=== PATIENT | male | born 1955 | race Caucasian/White ===

== ENCOUNTER → 2024-07-25 | Outpatient (CLI) | payer MEDICARE ==
--- NOTE | 2024-07-25 10:05 | MR ---
EXAMINATION TYPE: MR Prostate wo/w con DATE OF EXAM: 07/25/2024 8:40 AM COMPARISON: None. CLINICAL INDICATION: Male, 69 years old with history of R97.20 ELEVATED PROSTATE SPECIFIC ANTIGEN [PS A]; TECHNIQUE: Multi-planar, multi-sequence imaging of the pelvis is performed prior to and following the uncomplicated administration of bolus intravenous gadolinium. IV Contrast: mL Interpretive Criteria: PI-RADS v2.1 SERUM PSA: 04/30/2024=8.4 05/21/2024=10.5 SURGICAL PATHOLOGY: No data available. FINDINGS: Prostatic dimensions: 5.7 x 7.3 x 4.6 cm. Ellipsoid Volume:100.22 (PSA density=0.10 ng/mL/mL) CENTRAL GLAND (Central and Transition Zones/CZ+TZ): Multiple bilateral, heterogenous appearing hypertrophic stromal nodules, without suspicious lesion. M edian lobe hypertrophy with protrusion into the base of the bladder. (PI-RADS 2) PERIPHERAL ZONE (PZ): Bilateral linear, indistinct wedgelike areas of low ADC, and low T2 signal, No evidence of masslike a bnormality, or localized perfusional hypervascularity, to further suggest a focus of clinically signi ficant prostate cancer. (PI-RADS 2) SEMINAL VESICLES (SV): Symmetric and unremarkable. PERIPROSTATIC TISSUES: Unremarkable. LYMPH NODES: No enlarged pelvic lymph node. REMAINING PELVIS: Bladder wall is within normal limits given distention. No abnormal free or organized intrapelvic fluid collection. No pathologic bowel dilation or mural thickening. Right fat containing inguinal hernia OSSEOUS STRUCTURES: No suspicious osseous abnormality. IMPRESSION: 1. No specific features for high-risk prostate cancer. Maximum PI-RADS score: 2. 2. Substantial BPH, estimated gland volume 100.22 (PSA density=0.10 ng/mL/mL) 3. No suspicious osseous lesion. No lymphadenopathy. No evidence of prostate adenocarcinoma involving the periprostatic tissues. [facility], , 07/25/2024 10:03 AM
== END | disposition home or self-care (01) ==
LOC: RADMRIMAIN 07:37
PROVIDERS: ATTEND Urology
DX: N40.0 Benign prostatic hyperplasia without lower urinary tract symptoms (principal); R97.20 Elevated prostate specific antigen [PSA]
CPT/HCPCS: 72197; A9585